=== PATIENT | female | born 1975 | race Caucasian/White ===

== ENCOUNTER 2017-12-30 03:34 | Inpatient (IN) | payer OTHER, SELFPAY | END 2018-01-05 12:00 | disposition home or self-care (01) | DRG 336 | PROVIDERS: Admitting Provider Surgery; Emergency Provider Emergency Medicine; Visit Provider Surgery | DX: K56.50 Intestinal adhesions [bands], unspecified as to partial versus complete obstruction (principal); J45.901 Unspecified asthma with (acute) exacerbation; K56.2 Volvulus; K42.9 Umbilical hernia without obstruction or gangrene; R33.9 Retention of urine, unspecified; R06.89 Other abnormalities of breathing; Z53.31 Laparoscopic surgical procedure converted to open procedure | CPT/HCPCS: 36415; 74177; 80048; 80053; 83036; 83690; 85025; 88304; 94640; 94760; 94762; 96374; 99058; 99284; J0330; J0690; J1100; J1650; J1885; J1940; J2250; J2270; J2405; J2550; J2704; J2765; J2920; J3010; J7121; J7614; Q9967 ==

== ENCOUNTER 2018-11-29 07:53 | Inpatient (IN) | payer OTHER, MEDICAID, SELFPAY ==
[2018-02-13 09:33] VITALS: BMI 32.1
[2018-11-23 07:21] VITALS: BMI 34.7
[2018-11-29] VITALS (16 sets, daily range): BP systolic 115–146; BP diastolic 65–81; PULSE 71–102; RESP 10–18; TEMP 36.1–36.9; O2SAT 16–100; BMI 34.7
[2018-11-29] MEDS: LACTATED RINGERS 1,000 ML 42 ML IV ×2 (08:39→10:27)
[2018-11-29] MEDS: CEFAZOLIN 2 GM/100 ML FROZ.PIGGY IV ×2 (09:15→17:09)
--- NOTE | 2018-11-29 09:38 | SUR.OPER ---
Supine on padded OR bed, head on pillow, arms secured on padded arm boards at <90 degrees abduction, legs uncrossed, safety belt at thigh, tape over blanket over lower legs. Gel pad under heels.
[2018-11-29] MEDS: ACETAMINOPHEN IV 1,000 MG/100 ML VIAL 400 MG IV (09:53)
--- NOTE | 2018-11-29 10:05 | PM.PROC.1 ---
Procedures Date/Time Date of procedure: 11/29/18 Time of procedure: 09:08 Nerve Block Time out performed: Yes Local anesthetic used: lidocaine 1% Location of anesthetic used: T9-10 Nerve blocks: other (thoracic epidural for Postoperative Pain Management) Patient tolerated procedure: well and no complications Complications: none Additional comments: Thoracic epidural (T9-10) for post op pain management for ventral hernia repair as discussed with surgeon. Discussed with patient risks, benefits, and alternatives to thoracic epidural for post op pain management. Pt was brought to the OR and seated on the OR table. Standard ASA monitors attached. 2mg versed. Sterile prep and drape in the standard fashion. Landmarks identified and vertebrae palpated at approximately T9-10. Lidocaine 1% skin wheal and 25g finder needle advanced to lamina via paramedian approach. Needle advanced to bone, then walked superiorly and medially. Hustead needle inserted and advanced using the same approach. Clean GANESH to saline at 5.5cm. No paresthesias. Epidural catheter advanced easily. Catheter secured at 11cm/6cm in epidural space. Negative aspiration for heme or CSF. Test dose of 3mL 1.5% lidocaine with epinephrine was negative. Tegaderm was placed and catheter secured. Pt tolerated well.
[2018-11-29] MEDS: LIDOCAINE 1% W/EPI INJ 20 ML INJ (10:07)
[2018-11-29] MEDS: BUPIVACAINE 0.5% (PF) VIAL 30 ML INJ (10:13)
[2018-11-29] MEDS: CEFAZOLIN IRR (10:29)
[2018-11-29] MEDS: SODIUM CHLORIDE IRR (10:29)
[2018-11-29] MEDS: ONDANSETRON 4 MG/2 ML INJ IV ×3 (10:58→19:30)
--- NOTE | 2018-11-29 11:21 | SUR.PHASEI ---
EPIDURAL INFUSION STARTED BY DR BENNETT. REPORT CALLED TO [employer].
--- NOTE | 2018-11-29 12:30 | PM.HP.1 ---
History of Present Illness Date Patient Seen: 11/29/18 Time Patient Seen: 08:30 Chief complaint: [id number] REPAIR VENTRAL HERNIA Narrative: Pleasant 43-year-old lady known to me from prior visits. Last year, she underwent exploratory laparotomy for bowel obstruction and required bowel resection. She developed a wound infection postoperatively and has since developed a large hernia. She presents today to have the hernia repaired. She says that she is feeling reasonably well. She denies any new problems or symptoms. Patient History Medical History Anemia (Acute) Anxiety (Acute) Arthritis (Acute) Constipation (Acute) Depression (Acute) Diverticulosis (Acute) GERD (gastroesophageal reflux disease) (Acute) Group C streptococcal infection (Acute) History of thrombophlebitis (Acute ~2018) Hyperlipidemia (Acute) Pain (Acute) Pneumonia (Acute) Sinus drainage (Acute) Sleep apnea (Acute) Asthma (Acute) Degenerative disc disease, lumbar (Acute) Yessi's thyroiditis (Acute) History of hysterectomy (Acute) Muscle twitching (Acute) Stress incontinence (Acute) Volvulus of colon (Acute) Surgical History History of tubal ligation (Acute) Hx of cholecystectomy (Acute) History of appendectomy (Inactive 12/30/17) Social History household members: children Smoking Status: Never smoker alcohol intake: current Family & Social History Social History: household members children Tobacco & Substance use: Smoking Status Never smoker alcohol intake current alcohol intake frequency holiday/special occasion Substance Use Type does not use Meds Home Medications Medication Instructions Recorded Confirmed Type bupropion HCl [Wellbutrin XL] 150 mg PO Q DAY #0 12/30/17 11/29/18 History buspirone 15 mg PO BID #0 12/30/17 11/29/18 History escitalopram oxalate 20 mg PO QPM #0 12/30/17 11/29/18 History gabapentin [Neurontin] 300 mg PO QPM #0 12/30/17 11/29/18 History levalbuterol tartrate [Xopenex HFA] 2 puff INHALATION PRN PRN #0 12/30/17 11/29/18 History prazosin 3 mg PO Q HS #0 12/30/17 11/29/18 History trazodone 50 mg PO QHS #0 12/30/17 11/29/18 History oxycodone-acetaminophen 2 tab PO Q6HR PRN #40 tab 01/19/18 11/29/18 Rx oxycodone-acetaminophen 5 mg-325 1 tab PO Q4-6H PRN #30 tab MDD 4 11/21/18 11/29/18 Rx mg tablet Allergies Allergy/AdvReac Type Severity Reaction Status Date / Time albuterol [ALBUTEROL] Allergy Severe passes Verified 11/29/18 08:27 out latex [LATEX] Allergy Unknown Hives Verified 11/29/18 08:27 silicone Allergy Itchy Verified 11/29/18 08:27 skin, difficulty breathing, runny eyes tramadol [TRAMADOL] Allergy Hives, Verified 11/29/18 08:27 itchy skin codeine [CODEINE] AdvReac Unknown Nausea, Verified 11/29/18 08:27 vomiting sun Allergy Hives, Uncoded 11/29/18 08:27 swelling, runny eyes Review of Systems Review of Systems All systems reviewed & are unremarkable except as noted in HPI and below Exam Vital Signs (past 8 hours): - 11/29/18 08:30 11/29/18 10:52 11/29/18 10:57 Temperature 97.5 F L 97.7 F Pulse Rate 71 99 H 74 Respiratory Rate 16 13 13 Blood Pressure 115/81 140/70 138/70 Pulse Oximetry 16 L 100 96 11/29/18 11:02 11/29/18 11:07 11/29/18 11:15 Temperature Pulse Rate 81 86 80 Respiratory Rate 10 L 11 L 11 L Blood Pressure 139/69 146/69 H 130/66 Pulse Oximetry 98 96 96 11/29/18 11:22 Temperature 97.9 F Pulse Rate 80 Respiratory Rate 12 Blood Pressure 126/69 Pulse Oximetry 96 Oxygen Delivery Method Room Air Narrative Exam Narrative: Pleasant 43-year-old lady in no distress HEENT: Normocephalic and atraumatic, pupils equal round reactive to light accommodation with anicteric sclera Lungs: Clear bilaterally Heart: Regular rate and rhythm Abdomen: Soft, wide lower midline incision with an obvious visible and palpable hernia defect. It has obviously healed by secondary intention. There is a firm red to the lower aspect of the incision. It is minimally tender to palpation. Borborygmi is heard within the hernia defect itself. Otherwise active bowel sounds. No abdominal tenderness. Extremities: Warm and well perfused and without edema Assessment & Plan Assessment & Plan narrative: Very pleasant 43-year-old lady with a large ventral incisional hernia. We discussed the risks and benefits of repair today and patient expressed desire to have the procedure. After discussion with Dr. Schilling, she has elected to consent to an epidural to aid with postoperative pain control.
--- NOTE | 2018-11-29 12:38 | PM.OP.1 ---
Operative Date/Time/Diagnoses Date of procedure: 11/29/18 Time of procedure: 12:38 Pre-op diagnosis: Large Incisional Hernia Post-op diagnosis: same Procedure & Clinicians Procedure: Incisional hernia repair with Atrium Mesh Same procedure as scheduled: Yes Indications: Large and painful incisional hernia Surgeon: Matilde Floyd Click Yes if Unassisted: Yes Anesthesia Type: General (Dr. Schilling) Operative Notes Prosthetic devices, grafts, tissues, transplants, or devices: 7.5 x 15 cm atrium mesh Estimated Blood Loss (mL): 25 Procedure in detail: After obtaining informed consent, the patient brought to the operating room and placed in supine position on the operating table. Following successful induction of general endotracheal anesthesia, appropriate padding of all bony prominences, and placement of appropriate monitors, the abdomen is prepped and draped in the standard surgical fashion. A time-out was held per SCOAP protocol. Following infiltration with local anesthetic to create a field block, the existing scar was excised and passed from the table. This immediately revealed the hernia sac and bowel contents below. The edges of the hernia sac carefully defined and the hernia sac amputated. Careful adhesiolysis was undertaken to release the bowel from its attachment to the anterior abdominal wall. There were remarkably few intra-abdominal adhesions. The hernia repair measured 13 x 11 cm. The left side of the abdominal wall was noted to have retracted significantly laterally and the right had stayed relatively in place. We elected to close the hernia with interrupted 1. Prolene sutures and placed internal retention sutures of #1 Vicryl. Once this was done, the wound was checked for hemostasis. The edges of the skin and subcutaneous tissue were then undermined to allow better access to the fascia. Portion of Atrium mesh, 15 x 7.5 cm, was laid onto the fascia over the incision and sewn to the fascia with Prolene and Vicryl sutures. The wound was irrigated with Ancef containing solution and then closed in layers with Vicryl suture. The skin was closed with nylon suture and clips. An Aquacel dressing was applied. All sponge, needle, and instrument counts were correct at the conclusion of the case. The patient was allowed to awake from anesthesia without difficulty and taken to the post anesthesia care unit in good condition. Complications: none Condition: stable Disposition: PACU Plan for aftercare: 1. Admit to acute care/ICU for epidural management and supportive care 2. Continue IV antibiotics for 24 hr 3. Perry to gravity drain
[2018-11-29] MEDS: DEXTROSE 5%-0.45% NS 1,000 ML 125 ML IV ×2 (12:59→21:37)
[2018-11-29] MEDS: BUPIVACAINE 0.5% (PF) 25 ML in SODIUM CHLORIDE 0.9% 75 ML 5 ML EPIDURAL (13:01)
--- NOTE | 2018-11-29 13:09 | PM.PN.1 ---
Subjective Date Patient Seen: 11/29/18 Time Patient Seen: 13:09 Interval history: Now post ventral hernia repair, thoracic epidural in situ. Pt denies pain. Exam Vital Signs (past 8 hours): - 11/29/18 08:30 11/29/18 10:52 11/29/18 10:57 Temperature 97.5 F L 97.7 F Pulse Rate 71 99 H 74 Respiratory Rate 16 13 13 Blood Pressure 115/81 140/70 138/70 Pulse Oximetry 16 L 100 96 11/29/18 11:02 11/29/18 11:07 11/29/18 11:15 Temperature Pulse Rate 81 86 80 Respiratory Rate 10 L 11 L 11 L Blood Pressure 139/69 146/69 H 130/66 Pulse Oximetry 98 96 96 11/29/18 11:22 11/29/18 11:30 11/29/18 12:00 Temperature 97.9 F 96.9 F L Pulse Rate 80 85 80 Respiratory Rate 12 12 16 Blood Pressure 126/69 126/76 138/81 Pulse Oximetry 96 96 94 11/29/18 13:00 Temperature Pulse Rate 95 H Respiratory Rate 18 Blood Pressure 126/74 Pulse Oximetry 94 Oxygen Delivery Method Room Air Oxygen Flow Rate 0 Narrative Exam Narrative: Block to cold sensation approximately T3-L3. Assessment & Plan Assessment & Plan narrative: Effective thoracic epidural. Excessive block at the moment, to be expected considering intraoperative boluses totaling 14mL 0.25% bupiv. Currently running 0.125% bupiv at 5mL/h. Will leave at current rate through the night, with the expectation that the block will recede significantly with the infusion. Anticipate 2-3 days of TEP for POPM. Quality VTE Deep Vein Thrombosis/Pulmonary Embolism Present on Admission: No
--- NOTE | 2018-11-29 13:29 | PT.IPTN ---
Current Diagnoses Ventral hernia without obstruction or gangrene (11/29/18) Surgery Performed Operation Date: 11/29/18 08:45 Actual Procedures p Hernia Repair Ventral - Matilde Floyd MD Physical Therapy: Order received and chart reviewed. Pt underwent surgery today. Spoke with her nurse who reports she is still having significant numbness. Will follow up tomorrow for possible evaluation.
[2018-11-29] MEDS: HYDROMORPHONE 1 MG INJ IV ×2 (14:15→20:39)
--- NOTE | 2018-11-29 14:43 | PC.NURSE ---
Postop Note Pt arrived to room 103 from PACU at 1130 via bed. Alert and oriented x3. Denies nausea - received zofran in PACU prior to transfer. Denies pain. Epidural infusing at 5 ml/hr, numbness reported from about T4 to about L2 on assessment - pt had received bolus through epidural prior to transfer. Abdominal binder in place over midline incision with aquacel c/d/i. Taking in clear liquids without issue. Perry catheter placed in room per MD order. Oxygen sats 95% RA. Oriented to room and to call light/bed/tv controls. Call light within reach. Family is at bedside.
[2018-11-29] MEDS: PROCHLORPERAZINE 10 MG/2 ML VIAL 5 MG IV (17:16)
[2018-11-29] MEDS: ESCITALOPRAM 10 MG TABLET 20 MG PO (17:27)
[2018-11-29] MEDS: ACETAMINOPHEN 325 MG TABLET 975 MG PO (20:32)
[2018-11-29] MEDS: BUSPIRONE 15 MG TABLET PO (20:33)
[2018-11-29] MEDS: CELECOXIB 200 MG CAPSULE PO (20:33)
[2018-11-29] MEDS: PRAZOSIN 1 MG CAPSULE 3 MG PO (20:33)
[2018-11-29] MEDS: GABAPENTIN 600 MG TABLET PO (20:34)
[2018-11-29] MEDS: diphenhydrAMINE 50 MG/ML VIAL 25 MG IV (21:37)
[2018-11-30] VITALS (8 sets, daily range): BP systolic 104–130; BP diastolic 38–72; PULSE 76–92; RESP 15–20; TEMP 36.5–37; O2SAT 90–97
[2018-11-30] MEDS: BUPIVACAINE 0.5% (PF) 25 ML in SODIUM CHLORIDE 0.9% 75 ML 7 ML EPIDURAL ×2 (00:15→14:09)
[2018-11-30] MEDS: CEFAZOLIN 2 GM/100 ML FROZ.PIGGY IV ×3 (00:15→17:09)
[2018-11-30] MEDS: PROCHLORPERAZINE 10 MG/2 ML VIAL 5 MG IV (00:15)
[2018-11-30] MEDS: ONDANSETRON 4 MG/2 ML INJ IV ×2 (01:11→11:12)
[2018-11-30 05:14] LABS: Add Manual Diff / Slide Review NO; Basophils Absolute Auto 0 /uL (0-100); Basophils Percent Auto 0.4 % (0-2); Eosinophils Absolute Auto 0 /uL (0-450); Eosinophils Percent Auto 0.1 % (2-4); Hematocrit 38.1 % (36-46); Hemoglobin 12.5 g/dL (12.0-16.0); Lymphocytes Absolute Auto 1800 /uL (1100-4500); Lymphocytes Percent Auto 15.5 % (25-40); Mean Corpuscular HGB Conc 32.9 % (30-36); Mean Corpuscular Volume 91.1 fL (80-100); Monocytes Absolute Auto 700 /uL (0-900); Monocytes Percent Auto 6.3 % (3-14); Neutrophils Absolute Auto 8900 /uL (1500-7000); Neutrophils Percent Auto 77.7 % (50-75); Platelet Count 257 X10^3/uL (150-400); Red Blood Cell Count 4.18 X10^6/uL (4.0-5.2); Red Cell Distribution Width 13.5 % (11.6-14.8); White Blood Cell Count 11.4 X10^3/uL (4.5-11.0)
[2018-11-30 05:22] LABS: Alanine Aminotransferase 24 IU/L (9-52); Albumin 3.8 g/dL (3.5-5.0); Albumin Globulin Ratio 1.2 (1.0-2.8); Alkaline Phosphatase 51 U/L (38-126); Aspartate Aminotransferase 20 IU/L (14-36); Bilirubin Total 0.3 mg/dL (0.2-1.3); Blood Urea Nitrogen 9 mg/dL (7-17); Calcium 8.3 mg/dL (8.4-10.2); Carbon Dioxide 22 mmol/L (22-32); Chloride 101 mmol/L (98-107); Estimated Glomerular Filt Rate > 60.0 mL/min (>60); Globulin 3.1 g/dL (1.7-4.1); Glucose 129 mg/dL (70-100); HEMOLYSIS < 15 (0-50); Magnesium 1.8 mg/dL (1.6-2.3); Potassium 3.9 mmol/L (3.4-5.1); Sodium 136 mmol/L (137-145); Total Protein 6.9 g/dL (6.3-8.2)
[2018-11-30] MEDS: DEXTROSE 5%-0.45% NS 1,000 ML 125 ML IV ×3 (06:09→23:30)
--- NOTE | 2018-11-30 06:16 | PC.NURSE ---
Patient has dozed, epidural with bupivicaine infusing at 7ml/hr, controlling abdominal pain, no IV Dilaudid requested for breakthrough pain. Does have intermittent nausea without emesis, IV Compazine and Zofran given per prn. Binder in place over Carlael chanelg. VSS.
[2018-11-30] MEDS: ACETAMINOPHEN 325 MG TABLET 975 MG PO ×3 (10:15→21:05)
[2018-11-30] MEDS: CELECOXIB 200 MG CAPSULE PO ×2 (10:16→21:06)
[2018-11-30] MEDS: buPROPion XL 150 MG TAB PO (10:16)
[2018-11-30] MEDS: BUSPIRONE 15 MG TABLET PO ×2 (10:16→21:06)
[2018-11-30] MEDS: GABAPENTIN 600 MG TABLET PO ×2 (10:16→21:06)
[2018-11-30] MEDS: ENOXAPARIN 40 MG/0.4 ML SYRINGE SUBCUT (10:17)
--- NOTE | 2018-11-30 11:30 | CM.DANOTE ---
DCP: Case received, EMR reviewed and met with patient. Introduced self and role. DCP template completed with information currently available. Patient is a 43 year old female who admitted yesterday to the surgical team. PCP: Dr. Miller. Payer: confirmed: Jennifer Landry. Patient came to hospital for surgical procedure. She had a repair of a ventral hernia. Met briefly with patient. She is from her spouse, and her son Mike lives with her, and her mother is here staying with her while she is recuperating. She stated, she may be here for a couple more days, according to the sugeon. Patient resides in [place], and is employed. P: DCP to continue to follow. Patient should be able to go home when she is medically stable. Izabela Mendiola RN/Brim Molder
--- NOTE | 2018-11-30 12:09 | P.PN_ITS ---
Subjective Date Patient Seen: 11/30/18 Time Patient Seen: 12:07 Interval history: Josef is in reasonable spirits today. Her only real complaint is heartburn. She says she is having a little bit of nausea from heartburn but she is otherwise tolerating oral intake. She has not passed any flatus but she feels a lot of movement in her abdomen and feels like it will happen any minute. She also says she is having a little bit of discomfort on the right side of her abdomen. She has no feeling on the left side of her abdomen. Exam Vital Signs (past 8 hours): - 11/30/18 04:20 11/30/18 08:45 Temperature 97.7 F 98.1 F Pulse Rate 88 84 Respiratory Rate 16 15 Blood Pressure 122/70 120/71 Pulse Oximetry 92 95 Oxygen Delivery Method Room Air Oxygen Flow Rate 0 Narrative Exam Narrative: Lungs: Clear bilaterally Heart: Regular rate and rhythm without murmur Abdomen: Soft, appropriately tender to palpation, abdominal binder in place. Aqua maty remains in place with minimal shadow extremities: No edema Objective Labs Result Diagrams: 11/30/18 04:50 11/30/18 04:50 Labs: Laboratory Results - last 24 hr 11/29/18 11/30/18 11/30/18 12:00 04:50 04:50 WBC 11.4 H RBC 4.18 Hgb 12.5 Hct 38.1 MCV 91.1 MCH 30.0 MCHC 32.9 RDW 13.5 Plt Count 257 Neut % (Auto) 77.7 H Lymph % (Auto) 15.5 L [place] % (Auto) 6.3 Eos % (Auto) 0.1 L Baso % (Auto) 0.4 Neut # (Auto) 8900 H Lymph # (Auto) 1800 [place] # (Auto) 700 Eos # (Auto) 0 Baso # (Auto) 0 Sodium 136 L Potassium 3.9 Chloride 101 Carbon Dioxide 22 BUN 9 Creatinine 0.60 Estimated GFR > 60.0 BUN/Creatinine Ratio 15.0 Glucose 129 H Calcium 8.3 L Magnesium 1.8 Total Bilirubin 0.3 AST 20 ALT 24 Alkaline Phosphatase 51 Total Protein 6.9 Albumin 3.8 Globulin 3.1 Albumin/Globulin Ratio 1.2 Nasal Screen MRSA (PCR) Negative for mrsa Assessment & Plan Assessment & Plan narrative: postop day 1 after repair of a large incisional hernia. 1. Start IV Protonix and Reglan 2. oral Tums as needed 3. we will ask the anesthesia provider to check the epidural. Would like to leave it in at least a day or 2 longer. 4. continue stool softeners Quality VTE Deep Vein Thrombosis/Pulmonary Embolism Present on Admission: No
[2018-11-30] MEDS: PANTOPRAZOLE 40 MG VIAL IV ×2 (12:15→21:01)
[2018-11-30] MEDS: METOCLOPRAMIDE 10 MG/2 ML INJ 5 MG IV ×2 (12:17→21:00)
[2018-11-30] MEDS: CALCIUM CARBONATE 500 MG TAB 1000 MG PO (12:18)
--- NOTE | 2018-11-30 13:04 | PT.IIE ---
Current Diagnoses Ventral hernia without obstruction or gangrene (11/29/18) Surgery Performed Operation Date: 11/29/18 08:45 Actual Procedures p Hernia Repair Ventral - Matilde Floyd MD Surgical History (Last Reviewed 11/29/18 @ 12:31 by Matilde Floyd MD) History of tubal ligation (Acute) Hx of cholecystectomy (Acute) History of appendectomy (Inactive 12/30/17) Medical History (Last Reviewed 11/29/18 @ 12:31 by Matilde Floyd MD) Anemia (Acute) Anxiety (Acute) Arthritis (Acute) Constipation (Acute) Depression (Acute) Diverticulosis (Acute) GERD (gastroesophageal reflux disease) (Acute) Group C streptococcal infection (Acute) History of thrombophlebitis (Acute ~2018) Hyperlipidemia (Acute) Pain (Acute) Pneumonia (Acute) Sinus drainage (Acute) Sleep apnea (Acute) Asthma (Acute) Degenerative disc disease, lumbar (Acute) Yessi's thyroiditis (Acute) History of hysterectomy (Acute) Muscle twitching (Acute) Stress incontinence (Acute) Volvulus of colon (Acute) Physical Therapy Inpatient Evaluation/Re-Eval M1 PT/OT-IP Prior Functional Status Start: 11/29/18 13:31 Freq: NEEDED Status: Active Protocol: Document 11/30/18 12:50 [facility] (Rec: 11/30/18 13:04 [facility] [id number]) Medical Review Prior Functional Status Medical History Reviewed Yes Diet/Fluid Consistency Regular Communication WNL Mobility and Gait Has been using NBQC for past month d/t pain. 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 She has 3 weeks off. Social History Household Members children Living Arrangements House Number of Floors (Floors) Two Floors Number of Stairs To Enter/Railing? Pt has 3 INGRID and has set up downstairs so she does not have to go upstairs in her house. Home Environment Standard Height Toilet Tub/Shower Home Equipment Quad Cane Shower Seat with Backrest Grab Bars In Shower Employment Status [employer] Employed Additional Social History Comment Mom will be here to help until the 28th M2 PT-IP Current Condition Start: 11/29/18 13:31 Freq: NEEDED Status: Active Protocol: Document 11/30/18 12:50 [facility] (Rec: 11/30/18 13:04 [facility] [id number]) Physical Therapy Current Condition Current Condition Evaluation Date 11/30/18 Treatment Diagnosis S/p hernia repair Precautions Abdominal Surgery Precautions Log Roll Lifting Restrictions Gait Belt above Incisional Area Other Precautions no gait belt at this time d/t epidural M3 PT-IP Subjective Start: 11/29/18 13:31 Freq: NEEDED Status: Active Protocol: Document 11/30/18 12:50 [facility] (Rec: 11/30/18 13:04 [facility] [id number]) Subjective Physical Therapy Visit Type Type Initial Evaluation Visit Start Time 11:31 Visit Stop Time 12:02 Total Visit Minutes 31 Number of CHOCOLATE MAKER Visits 0 Physical Therapy Visit Comments Patient Comments Pt planning to go home after d /c from hospital. Son is 14 years old and able to help. Therapy Pain Assessment Pain When Pain Assessed During Mobility Pain Present Pain Present Pain Reported M4 PT-IP Mobility and Gait Start: 11/29/18 13:31 Freq: NEEDED Status: Active Protocol: Document 11/30/18 12:50 [facility] (Rec: 11/30/18 13:04 [facility] [id number]) PT-Bed Mobility Assessment Rolling Type of Rolling Log Rolling Roll to Right Level of Assist Standby Assistance Supine to Sit Supine to Sit Moderate Assistance Bedrails Scooting Scooting to Edge of Bed Standby Assistance PT-Transfer Assessment Sit to and From Stand Sit to and from Stand Contact Guard Assistance Equipment Transfer Assistive Device Front Wheeled Walker Orthotic/Prosthetic Devices or Brace: Yes Transfers Transfer Destination Chair Transfer Technique Stand Step Pivot Transfer Ability Level of Assist Contact Guard Assistance Comments Mobility Comments Abdominal brace worn during transfer PT-Balance Assessment Sitting Balance and Reactions Static Sitting Balance Ability Good Dynamic Sitting Balance Ability Good Standing Balance and Reactions Static Standing Balance Ability Fair Dynamic Standing Balance Ability Poor M5 PT-IP Objective Assessments Start: 11/29/18 13:31 Freq: NEEDED Status: Active Protocol: Document 11/30/18 12:50 [facility] (Rec: 11/30/18 13:04 [facility] [id number]) Orientation Orientation/Cognition Level of Alertness Alert Strength Lower Extremity Strength Assessment Bilaterally Impaired M6 PT-IP Treatment Start: 11/29/18 13:31 Freq: NEEDED Status: Active Protocol: Document 11/30/18 12:50 [facility] (Rec: 11/30/18 13:04 [facility] [id number]) Physical Therapy Treatment Education Education Provided Precautions Safety M7 PT-IP Assessment and Plan Start: 11/29/18 13:31 Freq: NEEDED Status: Active Protocol: Document 11/30/18 12:50 [facility] (Rec: 11/30/18 13:04 [facility] [id number]) PT Summary Assessment and Plan Potential Rehabilitation Potential Excellent Status of Condition at Evaluation Evolving Summary Impairments Pain Strength Balance Bed Mobility Transfers Gait Activity Tolerance Assessment Summary Pt presents s/p hernia repair with epidural in place. She has LE movement and was able to transfer to chair today. She will cont to transfer as she wants today with nursing and PT will follow up with pt tomorrow to progress as pt is able. Goals Bed Mobility Goal Independent Transfer Goal Independent Gait Goal Independent Gait Distance 150ft with least restrictive device Other Goals UP/down 3 steps with SBA Days to Meet Goals 3 Frequency of Treatment Frequency Of Treatment Once a Day Treatment Plan Physical Therapy Treatment Plan Bed Mobility Training Transfer Training Gait Training Therapeutic Exercise Post Op Education Discharge Planning Neuromuscular Re-ed Recommendations To Nursing Amount of Assist Needed 1 Person Assist Discharge Recommendations PT Discharge Recommendations Home with Assistance Outpatient PT Other Discharge Recommendations OP PT to build back strength
[2018-11-30] MEDS: FENT 2MCG/BUPIV 0.125% EPI 2 MCG/100 ML PLAST..BAG 7 MCG EPIDURAL (15:55)
--- NOTE | 2018-11-30 16:13 | P.PN_ITS ---
Subjective Date Patient Seen: 11/30/18 Time Patient Seen: 16:09 Interval history: POD#1 Ventral hernia repair, thoracic epidural running with good pain control. Yesterday pm, after boluses wore off, pt reported R-sided pain and received two 1mg doses of IV dilaudid with adequate relief. Last dose was yesterday at approx 8pm. None required today. R sided abd pain is localized, 1-5/10. At the time of visit, pt reported 1/10 pain. Tolerating regular diet. Exam Vital Signs (past 8 hours): - 11/30/18 08:45 11/30/18 12:37 11/30/18 15:57 Temperature 98.1 F 97.9 F 97.7 F Pulse Rate 84 76 80 Respiratory Rate 15 16 20 Blood Pressure 120/71 130/49 L 107/64 Pulse Oximetry 95 96 97 Oxygen Delivery Method Room Air Oxygen Flow Rate 0 Narrative Exam Narrative: Pt seated in chair, alert, happy, conversant. Block to cold sensation L>R, approximately T6-L1 bilaterally, though denser on L. Catheter insertion site and bandage c/d/i, mild TTP approx 2cm superior and to the right of the insertion site, without erythema or obvious swelling. No TTP at insertion. Objective Labs Result Diagrams: 11/30/18 04:50 11/30/18 04:50 Labs: Laboratory Results - last 24 hr 11/30/18 11/30/18 04:50 04:50 WBC 11.4 H RBC 4.18 Hgb 12.5 Hct 38.1 MCV 91.1 MCH 30.0 MCHC 32.9 RDW 13.5 Plt Count 257 Neut % (Auto) 77.7 H Lymph % (Auto) 15.5 L [place] % (Auto) 6.3 Eos % (Auto) 0.1 L Baso % (Auto) 0.4 Neut # (Auto) 8900 H Lymph # (Auto) 1800 [place] # (Auto) 700 Eos # (Auto) 0 Baso # (Auto) 0 Sodium 136 L Potassium 3.9 Chloride 101 Carbon Dioxide 22 BUN 9 Creatinine 0.60 Estimated GFR > 60.0 BUN/Creatinine Ratio 15.0 Glucose 129 H Calcium 8.3 L Magnesium 1.8 Total Bilirubin 0.3 AST 20 ALT 24 Alkaline Phosphatase 51 Total Protein 6.9 Albumin 3.8 Globulin 3.1 Albumin/Globulin Ratio 1.2 Assessment & Plan Assessment & Plan narrative: POD#1 for large ventral hernia repair with good pain control with TEP. 4mL bolus of 0.25% bupiv given to test for R sided relief, and infusion changed from 0.125% bupiv to 0.125% bupive with fentanyl 2mcg/mL, same rate 7mL/h. Pt reported relief after bolus. Will discuss with surgery possibly capping catheter tomorrow am vs tuesday. Quality VTE Deep Vein Thrombosis/Pulmonary Embolism Present on Admission: No
[2018-11-30] MEDS: ESCITALOPRAM 10 MG TABLET 20 MG PO (17:09)
[2018-11-30] MEDS: PRAZOSIN 1 MG CAPSULE 3 MG PO (21:07)
[2018-12-01] MEDS: CEFAZOLIN 2 GM/100 ML FROZ.PIGGY IV ×3 (01:18→17:19)
[2018-12-01] MEDS: FENT 2MCG/BUPIV 0.125% EPI 2 MCG/100 ML PLAST..BAG 7 MCG EPIDURAL (06:03)
[2018-12-01] MEDS: METOCLOPRAMIDE 10 MG/2 ML INJ 5 MG IV ×3 (06:21→21:14)
--- NOTE | 2018-12-01 06:32 | PC.NURSE ---
Epidural bag from narcotic drawer will not scan appropriately, [facility] called, their response it was the DrBrandon or Nurse who entered the order. Anesthesia called Dr. Clay called, she came to the dept. and looked at the empty bag and the new bag which are premixes and exactly the same , and her response is talk to pharmacy about the order. It is a combination of Bupivicaine and Fentanyl to run at 7ml/hr. The problem comes in that the emar says 2mcg Fentanyl per bag when in actuality it is 2mcg Fentany per ml.
[2018-12-01] MEDS: OXYCODONE/ACETAMINOPHEN 5/325 TABLET 2 TAB PO ×2 (08:22→14:49)
[2018-12-01 08:23] VITALS: BP 115/65; PULSE 76; RESP 16; TEMP 36.7; O2SAT 95
[2018-12-01] MEDS: buPROPion XL 150 MG TAB PO (09:03)
[2018-12-01] MEDS: BUSPIRONE 15 MG TABLET PO ×2 (09:04→20:51)
[2018-12-01] MEDS: CELECOXIB 200 MG CAPSULE PO ×2 (09:05→20:52)
[2018-12-01] MEDS: PANTOPRAZOLE 40 MG VIAL IV ×2 (09:05→20:50)
[2018-12-01] MEDS: ENOXAPARIN 40 MG/0.4 ML SYRINGE SUBCUT (09:05)
[2018-12-01] MEDS: GABAPENTIN 600 MG TABLET PO ×2 (09:05→20:52)
--- NOTE | 2018-12-01 11:00 | PT.IPTN ---
Current Diagnoses Ventral hernia without obstruction or gangrene (11/29/18) Surgery Performed Operation Date: 11/29/18 08:45 Actual Procedures p Hernia Repair Ventral - Matilde Floyd MD Physical Therapy Treatment Note M2 PT-IP Current Condition Start: 11/29/18 13:31 Freq: NEEDED Status: Active Protocol: Document 11/30/18 12:50 LRH (Rec: 11/30/18 13:04 LR [email or web address]) Physical Therapy Current Condition Current Condition Evaluation Date 11/30/18 Treatment Diagnosis S/p hernia repair Precautions Abdominal Surgery Precautions Log Roll Lifting Restrictions Gait Belt above Incisional Area Other Precautions no gait belt at this time d/t epidural M3 PT-IP Subjective Start: 11/29/18 13:31 Freq: NEEDED Status: Active Protocol: Document 12/01/18 11:00 GGD (Rec: 12/01/18 11:28 GGD [id number]) Subjective Physical Therapy Visit Type Type Treatment Note Visit Start Time 10:35 Visit Stop Time 11:00 Total Visit Minutes 25 Number of SALES CLOSER Visits 1 Physical Therapy Visit Comments Patient Comments Pt states she would like to walk. Therapy Pain Assessment Pain When Pain Assessed During Mobility Pain Present Pain Present Pain Reported Location Right Lower Abdomen Intensity 5 Scale Used Numeric (1 - 10) M4 PT-IP Mobility and Gait Start: 11/29/18 13:31 Freq: NEEDED Status: Active Protocol: Document 12/01/18 11:00 GGD (Rec: 12/01/18 11:28 GGD [id number]) PT-Bed Mobility Assessment Rolling Type of Rolling Log Rolling Roll to Right Level of Assist Standby Assistance Sit to Supine Sit to Supine Contact Guard Assistance Scooting Scooting to Edge of Bed Standby Assistance PT-Transfer Assessment Sit to and From Stand Sit to and from Stand Standby Assistance Equipment Transfer Assistive Device Front Wheeled Walker Orthotic/Prosthetic Devices or Brace: Yes Transfers Transfer Destination Bed Chair Transfer Ability Level of Assist Contact Guard Assistance Comments Mobility Comments Abdominal brace worn during transfer Gait Assessment Gait Gait Assistance Required: Contact Guard Assist Distance (Feet) 140 Able to Maintain Weight Bearing Status Yes During Gait Assistive Devices Assistive Device Front Wheeled Walker Orthotic/Prosthetic Devices or Brace: Yes Gait Deviations General Gait Pattern Decreased Stride Length Decreased Feet Clearance Flexed Trunk Wide Based Gait Factors Limiting Gait Function Factors Limiting Gait Function Decreased Strength Limited Range of Motion Pain M5 PT-IP Objective Assessments Start: 11/29/18 13:31 Freq: NEEDED Status: Active Protocol: Document 11/30/18 12:50 LRH (Rec: 11/30/18 13:04 LRH [email or web address]) Orientation Orientation/Cognition Level of Alertness Alert Strength Lower Extremity Strength Assessment Bilaterally Impaired M6 PT-IP Treatment Start: 11/29/18 13:31 Freq: NEEDED Status: Active Protocol: Document 12/01/18 11:00 GGD (Rec: 12/01/18 11:28 GGD [id number]) Physical Therapy Treatment Education Education Provided Precautions Safety M7 PT-IP Assessment and Plan Start: 11/29/18 13:31 Freq: NEEDED Status: Active Protocol: Document 12/01/18 11:00 GGD (Rec: 12/01/18 11:28 GGD [id number]) PT Summary Assessment and Plan Summary Assessment Summary Pt improving with mobility. She did need FWW for safe gait and had heavy use of UE. She improved with bed mobility and need cues for full log roll. Frequency of Treatment Frequency Of Treatment Once a Day Treatment Plan Physical Therapy Treatment Plan Bed Mobility Training Transfer Training Gait Training Therapeutic Exercise Post Op Education Discharge Planning Neuromuscular Re-ed Recommendations To Nursing Amount of Assist Needed 1 Person Assist Discharge Recommendations PT Discharge Recommendations Home with Assistance
[2018-12-01] MEDS: HYDROMORPHONE 1 MG INJ IV (11:14)
--- NOTE | 2018-12-01 11:41 | PC.NURSE ---
epidural dc'd with cath intact; pt up in chair for breakfast and ambulated with PT. IV site edematous and Katie Dobkins placed EPI iv.
[2018-12-01 12:00] VITALS: TEMP 36.6
[2018-12-01] MEDS: OXYCODONE IR 5 MG TABLET PO ×2 (12:10→21:05)
[2018-12-01] MEDS: DEXTROSE 5%-0.45% NS 1,000 ML 125 ML IV ×2 (14:50→20:50)
[2018-12-01 15:48] VITALS: BP 131/75; PULSE 84; RESP 18; TEMP 36.5; O2SAT 96
--- NOTE | 2018-12-01 16:35 | PM.PNPO.1 ---
Subjective Date Patient Seen: 12/01/18 Time Patient Seen: 16:35 Interval history: Feeling okay. Tolerating p.o.. Has a Perry in place. Just got back from walking in the halls. No bowel movement yet. Exam Vital Signs (past 8 hours): - 12/01/18 12:00 12/01/18 15:48 Temperature 97.8 F 97.7 F Pulse Rate 84 Respiratory Rate 18 Blood Pressure 131/75 Pulse Oximetry 96 Oxygen Delivery Method Room Air Oxygen Flow Rate 0 Narrative Exam Narrative: Abdomen is soft and nontender. Dressing remains intact. Perry is in place. Objective Labs Result Diagrams: 11/30/18 04:50 11/30/18 04:50 Assessment & Plan Post-op Postoperative Procedures Operation Date: 11/29/18 08:45 Actual Procedures Side Surgeon p Hernia Repair Ventral Matilde Floyd MD Postoperative status narrative: Doing well. Epidural out. Postoperative plan narrative: Will remove her Perry and give her do locks pills. Probable discharge in the morning. Quality VTE Deep Vein Thrombosis/Pulmonary Embolism Present on Admission: No
[2018-12-01] MEDS: ESCITALOPRAM 10 MG TABLET 20 MG PO (17:15)
[2018-12-01] MEDS: BISACODYL 5 MG TABLET 10 MG PO (17:45)
[2018-12-01 19:56] VITALS: BP 130/77; PULSE 87; RESP 18; TEMP 36.8; O2SAT 95
[2018-12-01] MEDS: ACETAMINOPHEN 325 MG TABLET 975 MG PO (20:50)
[2018-12-01] MEDS: PRAZOSIN 1 MG CAPSULE 3 MG PO (20:56)
--- NOTE | 2018-12-01 23:03 | PC.NURSE ---
Dc'd childress cath, pt voiding, small loose stool, passing gas, taking diet w/ out difficulty. dressing is clean dry and intact. Pt has abdominal binder in place, hoping for discharge tomorrow.
[2018-12-01 23:20] VITALS: BP 115/57; PULSE 95; RESP 16; TEMP 36.4; O2SAT 92
[2018-12-02] MEDS: OXYCODONE/ACETAMINOPHEN 5/325 TABLET 2 TAB PO ×2 (01:09→08:38)
[2018-12-02] MEDS: CEFAZOLIN 2 GM/100 ML FROZ.PIGGY IV ×2 (02:17→08:44)
--- NOTE | 2018-12-02 04:17 | PC.NURSE ---
pt AO and pleasant. D5 1/2NS infusing @125/hr. Aquacel under abdominal binder is dry and intact, shadowing outlined in marker. 4/10 pain reported at 0100 and 1 5mg tab of percocet administered. Patient has 2 tabs ordered, but requested only 1 tab because she noticed moderate itching with larger doses of oxycodone. BM reported on evening shift on 12/01. Voiding 1PA to BR.
[2018-12-02 05:10] VITALS: BP 108/66; PULSE 81; RESP 18; TEMP 36.2; O2SAT 95
[2018-12-02] MEDS: DEXTROSE 5%-0.45% NS 1,000 ML 125 ML IV (05:46)
[2018-12-02] MEDS: METOCLOPRAMIDE 10 MG/2 ML INJ 5 MG IV (05:47)
[2018-12-02 08:00] VITALS: BP 132/75; PULSE 97; RESP 18; TEMP 36.6; O2SAT 96
[2018-12-02] MEDS: BUSPIRONE 15 MG TABLET PO (08:41)
[2018-12-02] MEDS: buPROPion XL 150 MG TAB PO (08:41)
[2018-12-02] MEDS: CELECOXIB 200 MG CAPSULE PO (08:41)
[2018-12-02] MEDS: GABAPENTIN 600 MG TABLET PO (08:42)
[2018-12-02] MEDS: PANTOPRAZOLE 40 MG VIAL IV (08:42)
[2018-12-02] MEDS: ENOXAPARIN 40 MG/0.4 ML SYRINGE SUBCUT (08:53)
--- NOTE | 2018-12-02 09:21 | P.DS_ITS ---
History of Present Illness Date Patient Seen: 12/02/18 Time Patient Seen: 09:18 Chief complaint: [id number] REPAIR VENTRAL HERNIA Narrative: The patient is a woman brought in for an incisional hernia repair Discharge Providers Date of admission: 11/29/18 07:53 Discharge Date: 12/02/18 Primary care physician: Shayla Miller DO Consults: 11/29/18 10:54 Consult to Physical Therapy Evaluate & Treat Comment: Physician Instructions: Evaluate and Treat 11/29/18 11:25 Consult to Discharge Planning Routine Comment: Discharge provider: Kaleb Beasley MD Summary Discharge Diagnosis: Incisional hernia chronic Anxiety chronic Depression chronic History of Yessi's thyroiditis Chronic arthritis Gastroesophageal reflux disease chronic Hospital Course: Patient underwent repair. She had epidural placed for pain control. This was highly successful. Once it was removed her Perry was removed she was advanced in her diet during her stay. She was discharged on a general diet urinating well and after having had a bowel movement. She will follow up with Dr. Floyd in the office. Status at Discharge Cognitive/behavioral status at discharge: oriented Functional status at discharge: independent ambulation Overall status at discharge: patient is progressing back to baseline Exam Vital Signs (past 8 hours): - 12/02/18 05:10 12/02/18 08:00 Temperature 97.2 F L 97.8 F Pulse Rate 81 97 H Respiratory Rate 18 18 Blood Pressure 108/66 132/75 Pulse Oximetry 95 96 Oxygen Delivery Method Room Air Oxygen Flow Rate 0 Narrative Exam Narrative: Lungs are clear no rales or rhonchi. Heart regular rate and rhythm without murmur gallop. Abdomen is soft. Midline is intact. There is no cellulitis. Dressing was removed prior to shower. Objective Labs Result Diagrams: 11/30/18 04:50 11/30/18 04:50 Discharge Plan Discharge Plan Patient Disposition: Home Discharge Med Rec/Prescriptions Prescriptions: New oxycodone-acetaminophen 5-300 mg tablet 1 tab PO Q4H PRN (Reason: pain) Qty: 20 RF: 0 omeprazole 20 mg capsule,delayed release(DR/EC) 20 mg PO DAILY Qty: 30 RF: 0 Continued escitalopram oxalate 20 MG tablet 20 mg PO QPM Qty: 0 RF: 0 trazodone 50 MG tablet 50 mg PO QHS Qty: 0 RF: 0 gabapentin [Neurontin] 300 MG capsule 300 mg PO QPM Qty: 0 RF: 0 levalbuterol tartrate [Xopenex HFA] 45 MCG/INH HFA aerosol inhaler 2 puff Inhalation PRN PRN (Reason: Wheezing) Qty: 0 RF: 0 buspirone 15 MG tablet 15 mg PO BID Qty: 0 RF: 0 prazosin 1 MG capsule 3 mg PO Q HS Qty: 0 RF: 0 bupropion HCl [Wellbutrin XL] 150 MG tablet extended release 24 hr 150 mg PO Q DAY Qty: 0 RF: 0 oxycodone-acetaminophen [Percocet] 5-325 mg tablet 1 tab PO Q4-6H MDD 4 PRN (Reason: pain) Qty: 30 RF: 0 oxycodone-acetaminophen 5-325 mg Tablet 2 tab PO Q6HR PRN (Reason: Severe Pain) Qty: 40 RF: 0 Follow up/Referrals: Shayla Miller DO [Primary Care Provider] - Matilde Floyd MD [Physician] - (Call on Tuesday for follow-up appointment in about 8-10 days. If you need to reach a doctor after hours please call our office on hold until the page in pilot plant operator helper picks up) Provider Discharge Instructions Diet: Diet as Tolerated Activity: Do not lift over 10 lb for the next 6 weeks. Do not strain or push heavy objects for the next 6 weeks. You may walk. No other real exercise. Do not swim or be in a pool. No hot tub. You may shower. Do not drive until pain free off medication. Skin/Wound/Dressing Care Report to your healthcare provider any signs of infection, such as:: chills, fever, night sweats, increased pain, unusual drainage and unusual redness Discharge Data Primary Care Provider: Shayla Miller Attending Provider: Matilde Floyd Admit Date/Time: 11/29/18 07:53 Quality VTE Deep Vein Thrombosis/Pulmonary Embolism Present on Admission: No
--- NOTE | 2018-12-02 11:30 | PT.IPTN ---
Current Diagnoses Ventral hernia without obstruction or gangrene (11/29/18) Surgery Performed Operation Date: 11/29/18 08:45 Actual Procedures p Hernia Repair Ventral - Matilde Floyd MD Physical Therapy Treatment Note M2 PT-IP Current Condition Start: 11/29/18 13:31 Freq: NEEDED Status: Active Protocol: Document 11/30/18 12:50 LRH (Rec: 11/30/18 13:04 LR [email or web address]) Physical Therapy Current Condition Current Condition Evaluation Date 11/30/18 Treatment Diagnosis S/p hernia repair Precautions Abdominal Surgery Precautions Log Roll Lifting Restrictions Gait Belt above Incisional Area Other Precautions no gait belt at this time d/t epidural M3 PT-IP Subjective Start: 11/29/18 13:31 Freq: NEEDED Status: Active Protocol: Document 12/02/18 11:30 GGD (Rec: 12/02/18 12:11 GGD [id number]) Subjective Physical Therapy Visit Type Type Treatment Note Visit Start Time 11:05 Visit Stop Time 11:30 Total Visit Minutes 25 Number of CLINICAL TECHNOLOGIST Visits 2 Physical Therapy Visit Comments Patient Comments Pt states she want's to take a shower before she goes home. Therapy Pain Assessment Pain When Pain Assessed During Mobility Pain Present Pain Present Pain Reported M4 PT-IP Mobility and Gait Start: 11/29/18 13:31 Freq: NEEDED Status: Active Protocol: Document 12/02/18 11:30 GGD (Rec: 12/02/18 12:11 GGD [id number]) PT-Transfer Assessment Sit to and From Stand Sit to and from Stand Standby Assistance Equipment Transfer Assistive Device Small Based Quad Cane Orthotic/Prosthetic Devices or Brace: Yes Transfers Transfer Destination Bedside Commode Transfer Ability Level of Assist Contact Guard Assistance Comments Mobility Comments Abdominal brace worn during transfer Gait Assessment Gait Gait Assistance Required: Contact Guard Assist Distance (Feet) 50 Able to Maintain Weight Bearing Status Yes During Gait Assistive Devices Assistive Device Small Based Quad Cane Orthotic/Prosthetic Devices or Brace: Yes Gait Deviations General Gait Pattern Decreased Stride Length Decreased Feet Clearance Flexed Trunk Wide Based Gait Factors Limiting Gait Function Factors Limiting Gait Function Decreased Strength Limited Range of Motion Pain Stair Climbing Assessment Evaluation Level of Assist On Stairs Contact Guard Assistance Devices Stair Climbing Assistive Devices Small Base Quad Cane Technique/Endurance Stair Climbing Direction Ascend and Descend Stair Climbing Technique Step to Step Number of Steps Climbed 3 Query Text: Stair Climbing Set # Repetitions (reps) 1 M5 PT-IP Objective Assessments Start: 11/29/18 13:31 Freq: NEEDED Status: Active Protocol: Document 11/30/18 12:50 LRH (Rec: 11/30/18 13:04 LRH [email or web address]) Orientation Orientation/Cognition Level of Alertness Alert Strength Lower Extremity Strength Assessment Bilaterally Impaired M6 PT-IP Treatment Start: 11/29/18 13:31 Freq: NEEDED Status: Active Protocol: Document 12/01/18 11:00 GGD (Rec: 12/01/18 11:28 GGD [id number]) Physical Therapy Treatment Education Education Provided Precautions Safety M7 PT-IP Assessment and Plan Start: 11/29/18 13:31 Freq: NEEDED Status: Active Protocol: Document 12/02/18 11:30 GGD (Rec: 12/02/18 12:11 GGD [id number]) PT Summary Assessment and Plan Summary Assessment Summary Pt improved with mobility. She was safe and stable with quad cane and stair mobility. She was slow moving due to pain, but no LOB. She is safe for home D/C. Frequency of Treatment Frequency Of Treatment Once a Day Treatment Plan Physical Therapy Treatment Plan Bed Mobility Training Transfer Training Gait Training Therapeutic Exercise Post Op Education Discharge Planning Neuromuscular Re-ed Recommendations To Nursing Amount of Assist Needed 1 Person Assist Discharge Recommendations PT Discharge Recommendations Home with Assistance
--- NOTE | 2018-12-02 12:18 | PC.NURSE ---
Pt showered, dressed and ready for discharge home with family. Family is present to drive her home. Went over d/c instructions with Pt and family - discussed d/c meds, time of last dose, reviewed precautions for lifting, pushing, pulling, and no driving while on narcotics. Dressing changed after shower. Reviewed stroke education. Pt denies further questions and was taken out via w/c by [facility] with family and all belongings.
--- NOTE | 2018-12-02 12:33 | CM.DPC ---
DCP: continued: Pt was ok'd for home today and did go home as planned. Her family was here to pick her up.
== END 2018-12-02 12:20 | disposition home or self-care (01) | DRG 355 ==
LOC: OR 07:55 → ICU 11-30 14:22 → AC 12-01 14:34
PROVIDERS: Admitting Provider Surgery; PCP Family Medicine; Visit Provider Surgery
PROC: 0WUF0JZ Supplement Abdominal Wall with Synthetic Substitute, Open Approach (ICD-10-PCS; principal; 2018-11-29 08:45)
DX: K43.2 Incisional hernia without obstruction or gangrene (principal); F41.9 Anxiety disorder, unspecified; F32.9 Major depressive disorder, single episode, unspecified; E06.3 Autoimmune thyroiditis
CPT/HCPCS: 36415; 49560; 49568; 80053; 83735; 85025; 87797; 97116; 97162; 97530; C1781; C9113; J0131; J0690; J0780; J1100; J1170; J1200; J1650; J2250; J2405; J2704; J2765; J3010

== ENCOUNTER 2019-04-30 18:35 | Emergency (ER) | payer OTHER, MEDICAID, SELFPAY ==
[2018-11-29 12:36] VITALS: BMI 34.7
[2019-04-30 18:40] VITALS: BP 141/92; PULSE 94; RESP 20; TEMP 36.8; O2SAT 98; BMI 34.0
--- NOTE | 2019-04-30 19:38 | ED.URI ---
HPI - URI/Sore Throat General Chief Complaint: Upper Respiratory Symptoms Stated Complaint: POSSIBLE SINUS INFECTION COUGH Time Seen by Provider: 04/30/19 18:40 Source: patient and family Mode of arrival: ambulatory Limitations: no limitations History of Present Illness HPI Narrative: 44-year-old female nonsmoker with history of Yessi's and a known allergy to significant sun exposure presents with significant sinus congestion, bilateral ear pain and throat pain since she was outside for an extended period time a few days ago. She initially had some difficulty with swallowing few days ago but that has since improved. She denies any fever or chills. She states she normally takes antihistamines but has not been taking them for the past few months MD Complaint: sore throat, rhinorrhea and nasal congestion Onset (ago): day(s) Duration: constant Severity: moderate Relieving factors: nothing Exacerbating factors: nothing Description of mucous: clear Able to tolerate fluids by mouth: Yes Associated symptoms: rhinorrhea, nasal congestion and sore throat Treatments prior to arrival: none Related Data Home Medications Medication Instructions Recorded Confirmed bupropion HCl [Wellbutrin XL] 150 mg PO Q DAY #0 12/30/17 01/24/19 buspirone 15 mg PO BID #0 12/30/17 01/24/19 escitalopram oxalate 20 mg PO QPM #0 12/30/17 01/24/19 gabapentin [Neurontin] 300 mg PO QPM #0 12/30/17 01/24/19 levalbuterol tartrate [Xopenex HFA] 2 puff INHALATION PRN PRN #0 12/30/17 01/24/19 prazosin 3 mg PO Q HS #0 12/30/17 01/24/19 trazodone 50 mg PO QHS #0 12/30/17 01/24/19 Previous Rx's Medication Instructions Recorded oxycodone-acetaminophen 2 tab PO Q6HR PRN #40 tab 01/19/18 oxycodone-acetaminophen 5 mg-325 1 tab PO Q4-6H PRN #30 tab MDD 4 11/21/18 mg tablet omeprazole 20 mg PO DAILY #30 cap 12/02/18 oxycodone-acetaminophen 1 tab PO Q4H PRN #20 tab 12/02/18 tizanidine 4 mg tablet 4 mg PO Q6-8H PRN #30 tab 12/05/18 ketorolac 10 mg PO Q6H PRN #14 tab 04/30/19 Allergies Allergy/AdvReac Type Severity Reaction Status Date / Time albuterol [ALBUTEROL] Allergy Severe passes Verified 04/30/19 18:48 out latex [LATEX] Allergy Unknown Hives Verified 04/30/19 18:48 silicone Allergy Itchy Verified 04/30/19 18:48 skin, difficulty breathing, runny eyes tramadol [TRAMADOL] Allergy Hives, Verified 04/30/19 18:48 itchy skin codeine [CODEINE] AdvReac Unknown Nausea, Verified 04/30/19 18:48 vomiting sun Allergy Hives, Uncoded 01/24/19 11:10 swelling, runny eyes Review of Systems Constitutional Denies chills, Denies fever(s), Denies lethargy and Denies weakness Eyes Denies change in vision, Denies eye discharge, Denies irritation and Denies loss of vision ENT Ears, Nose, Mouth, and Throat: Denies change in voice, Reports otalgia, Denies neck pain, Reports sinus pain and Reports sore throat Cardiovascular Denies chest pain, Denies irregular heart rhythm, Denies lightheadedness, Denies palpitations, Denies dyspnea, Denies dyspnea on exertion and Denies orthopnea Respiratory Denies cough, Denies dyspnea, Denies dyspnea on exertion and Denies wheezing Gastrointestinal Gastrointestinal: Denies abdominal pain, Denies change in bowel habits, Denies diarrhea, Denies nausea and Denies vomiting Genitourinary Denies hematuria, Denies flank pain, Denies urinary incontinence and Denies urinary urgency Musculoskeletal Denies neck pain Integumentary/Breasts Denies pruritus, Denies erythema, Denies rash and Denies wounds Neurologic Denies confusion, Denies loss of vision and Denies weakness Psychiatric Denies anxiety, Denies confusion, Denies depression, Denies homicidal ideation and Denies suicidal ideation Endocrine Denies palpitations Hematologic/Lymphatic Denies easy bruising Allergic/Immunologic Denies wheezing [facility] Medical History Anemia (Acute) Anxiety (Acute) Arthritis (Acute) Asthma (Acute) Constipation (Acute) Degenerative disc disease, lumbar (Acute) Depression (Acute) Diverticulosis (Acute) GERD (gastroesophageal reflux disease) (Acute) Group C streptococcal infection (Acute) Yessi's thyroiditis (Acute) History of hysterectomy (Acute) History of thrombophlebitis (Acute ~2018) Hyperlipidemia (Acute) Muscle twitching (Acute) Pain (Acute) Pneumonia (Acute) Sinus drainage (Acute) Sleep apnea (Acute) Stress incontinence (Acute) Volvulus of colon (Acute) Surgical History History of tubal ligation (Acute) Hx of cholecystectomy (Acute) History of appendectomy (Inactive 12/30/17) Social History household members: children Smoking Status: Never smoker alcohol intake: current Social History household members: children Smoking Status: Never smoker alcohol intake: current Exam Narrative Exam Narrative: GEN: AOx3 and in mild distress EYES: Pupils are equal, round, and reactive to light and accommodation. Extraoccular muscles are intact bilaterally. There is no subconjunctival hemorrhage or exudate. ENT: Clear postnasal drip, no oral exudate consistent with thrush. No tonsillar swelling or erythema. Bilateral tympanic membranes are clear with normal cone of light, landmarks, right side has a clear effusion CHEST: Lungs are clear to auscultation bilaterally and free of wheezes, rales, or rhonchi. Heart rate is regular rhythm, there are no murmurs, clicks, rubs, or gallops. There is no chest wall tenderness. ABD: Abdomen is soft and nontender. There is no guarding or rebound. Bowel sounds are normal in all 4 quadrants. There is no mass or organomegaly. EXT: Full painless ROM of all extremities with no loss of sensation or strength. SKIN: Warm, pink, and dry. No erythema or rash Initial Vital Signs Initial Vital Signs: Vital Signs Temperature 98.3 F 04/30/19 18:40 Pulse Rate 94 H 04/30/19 18:40 Respiratory Rate 20 04/30/19 18:40 Blood Pressure 141/92 H 04/30/19 18:40 Pulse Oximetry 98 04/30/19 18:40 Course Orders Ordered: ED Orders 04/30/19 19:43 Throat Culture Stat Discontinued Medications Ketorolac Tromethamine (Toradol) 60 mg IM NOW ONE Stop: 04/30/19 19:35 Last Admin: 04/30/19 19:51 Dose: 60 mg Vital Signs - 8 hr 04/30/19 18:40 04/30/19 20:26 Temperature 98.3 F 98.4 F Pulse Rate 94 H 80 Respiratory Rate 20 16 Blood Pressure 141/92 H 134/78 Pulse Oximetry 98 98 MDM - URI/Sore Throat Lab Data Point of Care Testing Rapid Strep A Negative Discharge Plan Departure Patient Disposition: Home Clinical Impression: Allergic rhinitis Qualifiers: Allergic rhinitis trigger: other Allergic rhinitis seasonality: unspecified Qualified Code(s): J30.89 - Other allergic rhinitis Discharge Date/Time: 04/30/19 20:27 Interventions: ED Discharge Assessment Last Done: 04/30/19 20:26 Instructions: Allergic Rhinitis Activity Restrictions/Additional Instructions: *You have been diagnosed with [allergic rhinitis] *What to do: *Take medications as directed: Including [id number] antihistamine such as Maame, the decongestants you have been taking and a prescription for Toradol *Follow up with your primary care provider in 2-3 days, call for an appointment. Let them know you were seen in the Emergency Department and that we ask that you be seen in follow up *Return to ER if you should have any new, worsening or concerning symptoms Prescriptions: New ketorolac 10 mg tablet 10 mg PO Q6H PRN (Reason: pain) Qty: 14 RF: 0 No Action escitalopram oxalate 20 MG tablet 20 mg PO QPM Qty: 0 RF: 0 trazodone 50 MG tablet 50 mg PO QHS Qty: 0 RF: 0 gabapentin [Neurontin] 300 MG capsule 300 mg PO QPM Qty: 0 RF: 0 levalbuterol tartrate [Xopenex HFA] 45 MCG/INH HFA aerosol inhaler 2 puff Inhalation PRN PRN (Reason: Wheezing) Qty: 0 RF: 0 buspirone 15 MG tablet 15 mg PO BID Qty: 0 RF: 0 prazosin 1 MG capsule 3 mg PO Q HS Qty: 0 RF: 0 bupropion HCl [Wellbutrin XL] 150 MG tablet extended release 24 hr 150 mg PO Q DAY Qty: 0 RF: 0 oxycodone-acetaminophen [Percocet] 5-325 mg tablet 1 tab PO Q4-6H MDD 4 PRN (Reason: pain) Qty: 30 RF: 0 tizanidine [Zanaflex] 4 mg tablet 4 mg PO Q6-8H PRN (Reason: muscle spasticity) Qty: 30 RF: 0 oxycodone-acetaminophen 5-325 mg Tablet 2 tab PO Q6HR PRN (Reason: Severe Pain) Qty: 40 RF: 0 omeprazole 20 mg capsule,delayed release(DR/EC) 20 mg PO DAILY Qty: 30 RF: 0 oxycodone-acetaminophen 5-300 mg tablet 1 tab PO Q4H PRN (Reason: pain) Qty: 20 RF: 0 Referrals: Shayla Miller DO [Primary Care Provider] -
[2019-04-30] MEDS: KETOROLAC 60 MG/2 ML VIAL IM (19:51)
[2019-04-30 20:26] VITALS: BP 134/78; PULSE 80; RESP 16; TEMP 36.9; O2SAT 98
== END 2019-04-30 20:27 | disposition home or self-care (01) ==
PROVIDERS: Emergency Provider Emergency Medicine; PCP Family Medicine
DX: J30.89 Other allergic rhinitis (principal)
CPT/HCPCS: 87070; 87880; 96372; 99283; J1885

== ENCOUNTER 2019-11-21 21:23 | Emergency (ER) | payer OTHER, MEDICAID, SELFPAY ==
[2018-11-29 12:36] VITALS: BMI 34.7
[2019-11-21 21:41] VITALS: BP 133/63; PULSE 91; RESP 16; TEMP 37.4; O2SAT 96
[2019-11-21 22:57] LABS: Influenza A - CEPHEID Flu A NEGATIVE (NEGATIVE); Influenza B - CEPHEID Flu B NEGATIVE (NEGATIVE)
[2019-11-21 23:08] VITALS: BP 138/68; PULSE 90; RESP 18; O2SAT 97
[2019-11-22 00:30] VITALS: BP 127/65; PULSE 95; RESP 18; TEMP 37.2; O2SAT 97
--- NOTE | 2019-11-22 00:30 | ED.FEVER ---
HPI - Fever General Chief Complaint: Fever Stated Complaint: flu symptoms, fever Time Seen by Provider: 11/22/19 00:29 Source: patient Mode of arrival: Ambulatory Limitations: no limitations History of Present Illness HPI Narrative: Patient has had temperature up to 99 F at home. Patient has had nasal congestion, mild cough it has been nonproductive. A little bit of headache. This all started in the last 12 hours. She has felt muscle aches all over and her upper extremities lower extremities back and torso. She has not had any shortness of breath. She has not any chest pain. She has had some nausea but no vomiting. No diarrhea constipation, no urinary symptoms. Patient is here accompanied also with her grandson who had is febrile and having upper respiratory infectious type symptoms. 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 Interiano. She has a history of volvulus and had abdominal surgery for that. Related Data Home Medications Medication Instructions Recorded Confirmed bupropion HCl [Wellbutrin XL] 150 mg PO Q DAY #0 12/30/17 01/24/19 buspirone 15 mg PO BID #0 12/30/17 01/24/19 escitalopram oxalate 20 mg PO QPM #0 12/30/17 01/24/19 gabapentin [Neurontin] 300 mg PO QPM #0 12/30/17 01/24/19 levalbuterol tartrate [Xopenex HFA] 2 puff INHALATION PRN PRN #0 12/30/17 01/24/19 prazosin 3 mg PO Q HS #0 12/30/17 01/24/19 trazodone 50 mg PO QHS #0 12/30/17 01/24/19 Previous Rx's Medication Instructions Recorded oxycodone-acetaminophen 2 tab PO Q6HR PRN #40 tab 01/19/18 oxycodone-acetaminophen 5 mg-325 1 tab PO Q4-6H PRN #30 tab MDD 4 11/21/18 mg tablet omeprazole 20 mg PO DAILY #30 cap 12/02/18 oxycodone-acetaminophen 1 tab PO Q4H PRN #20 tab 12/02/18 tizanidine 4 mg tablet 4 mg PO Q6-8H PRN #30 tab 12/05/18 ketorolac 10 mg PO Q6H PRN #14 tab 04/30/19 Allergies Allergy/AdvReac Type Severity Reaction Status Date / Time albuterol [ALBUTEROL] Allergy Severe passes Verified 04/30/19 18:48 out latex [LATEX] Allergy Unknown Hives Verified 04/30/19 18:48 silicone Allergy Itchy Verified 04/30/19 18:48 skin, difficulty breathing, runny eyes tramadol [TRAMADOL] Allergy Hives, Verified 04/30/19 18:48 itchy skin codeine [CODEINE] AdvReac Unknown Nausea, Verified 04/30/19 18:48 vomiting sun Allergy Hives, Uncoded 01/24/19 11:10 swelling, runny eyes Review of Systems Review of Systems ROS Unobtainable: All systems reviewed & are unremarkable except as noted in HPI and below Patient History Medical History Anemia (Acute) Anxiety (Acute) Arthritis (Acute) Asthma (Acute) Constipation (Acute) Degenerative disc disease, lumbar (Acute) Depression (Acute) Diverticulosis (Acute) GERD (gastroesophageal reflux disease) (Acute) Group C streptococcal infection (Acute) Yessi's thyroiditis (Acute) History of thrombophlebitis (Acute ~2018) Hyperlipidemia (Acute) Muscle twitching (Acute) Pain (Acute) Pneumonia (Acute) Sinus drainage (Acute) Sleep apnea (Acute) Stress incontinence (Acute) Volvulus of colon (Acute) Surgical History History of appendectomy (Inactive 12/30/17) History of hysterectomy (Acute) History of tubal ligation (Acute) Hx of cholecystectomy (Acute) Social History household members: children Smoking Status: Never smoker alcohol intake: current Smoking Status: Never smoker alcohol intake frequency: holidays/special occasions only Substance Use Type: does not use Exam Narrative Exam Narrative: GEN: obese, well appearing female, alert and oriented x 3, patient appears to be in mild distress. HEENT: Atraumatic, pupils are equal round reactive to light, extraocular movements are intact, nares are clear, TMs are clear with no fluid. Throat is clear without any exudates, erythema, tonsillar enlargement or uvular deviation HEART: Regular rate and rhythm without murmur, clicks, rubs. LUNGS:Lungs clear to auscultation, no wheezes, rales, crackles, chest moves symmetrically ABD:bowel sounds normal, soft, non-tender, no guarding, rebound, rigidity, no masses noted, no hepatosplenomegaly :No CVA tenderness MSCL: Non-tender, no muscle atrophy, muscles strength 5/5 upper and lower extremities, full range of motion, normal gait NEURO:CN 2-12 intact, sensation normal SKIN: Patient has old abrasion on her right knee but no other rashes or skin changes. Patient states is from a prior fall. Initial Vital Signs Initial Vital Signs: Vital Signs Temperature 99.4 F 11/21/19 21:41 Pulse Rate 91 H 11/21/19 21:41 Respiratory Rate 16 11/21/19 21:41 Blood Pressure 133/63 11/21/19 21:41 Pulse Oximetry 96 11/21/19 21:41 Course Orders Ordered: ED Orders 11/21/19 22:17 Influenza A & B (PCR) Stat Vital Signs Vital signs: Vital Signs - 8 hr 11/21/19 21:41 11/21/19 23:08 11/22/19 00:30 Temperature 99.4 F 98.9 F Pulse Rate 91 H 90 95 H Respiratory Rate 16 18 18 Blood Pressure 133/63 Blood Pressure [Left Arm] 138/68 127/65 Pulse Oximetry 96 97 97 MDM - Fever Lab Data Attestation: I reviewed the patient's lab results. Labs: Lab Results 11/21/19 Range/Units 22:17 Influenza A (RT-PCR) Flu a negative (NEGATIVE) Influenza B (RT-PCR) Flu b negative (NEGATIVE) MDM Narrative Medical decision making narrative: Labs are negative for influenza. Patient has been afebrile in department her highest temperature at home was 99 F. She does not the criteria for additional testing at this time. She is accompanied by her grandson who does have a viral type illness and is febrile here in the department. It was given. Symptomatic care and self quarantine were discussed. Discharge Plan Departure Patient Disposition: Home Clinical Impression: Upper respiratory infection Discharge Date/Time: 11/22/19 01:42 Instructions: DI for Viral Upper Respiratory Infection -- Adult Activity Restrictions/Additional Instructions: Follow-up in a week to next 10 days if your symptoms are not improving. I would recommend not attending work until your symptoms have resolved. Continue ibuprofen and/or Tylenol as needed for fevers. Continue with oral hydration. Return to ER for shortness of breath, chest pain or pressure, persistent vomiting, black or bloody stools or abdominal pain, passing out swelling in her extremities, new rashes or skin changes or other new or concerning symptoms. Prescriptions: No Action escitalopram oxalate 20 MG tablet 20 mg PO QPM Qty: 0 RF: 0 trazodone 50 MG tablet 50 mg PO QHS Qty: 0 RF: 0 gabapentin [Neurontin] 300 MG capsule 300 mg PO QPM Qty: 0 RF: 0 levalbuterol tartrate [Xopenex HFA] 45 MCG/INH HFA aerosol inhaler 2 puff Inhalation PRN PRN (Reason: Wheezing) Qty: 0 RF: 0 buspirone 15 MG tablet 15 mg PO BID Qty: 0 RF: 0 prazosin 1 MG capsule 3 mg PO Q HS Qty: 0 RF: 0 bupropion HCl [Wellbutrin XL] 150 MG tablet extended release 24 hr 150 mg PO Q DAY Qty: 0 RF: 0 oxycodone-acetaminophen [Percocet] 5-325 mg tablet 1 tab PO Q4-6H MDD 4 PRN (Reason: pain) Qty: 30 RF: 0 tizanidine [Zanaflex] 4 mg tablet 4 mg PO Q6-8H PRN (Reason: muscle spasticity) Qty: 30 RF: 0 oxycodone-acetaminophen 5-325 mg Tablet 2 tab PO Q6HR PRN (Reason: Severe Pain) Qty: 40 RF: 0 omeprazole 20 mg capsule,delayed release(DR/EC) 20 mg PO DAILY Qty: 30 RF: 0 oxycodone-acetaminophen 5-300 mg tablet 1 tab PO Q4H PRN (Reason: pain) Qty: 20 RF: 0 ketorolac 10 mg tablet 10 mg PO Q6H PRN (Reason: pain) Qty: 14 RF: 0 Referrals: Shayla Miller, [Primary Care Provider] - Stand Alone Forms: Work Release Note
== END 2019-11-22 01:42 | disposition home or self-care (01) ==
PROVIDERS: Emergency Provider Emergency Medicine; PCP Family Medicine
DX: J06.9 Acute upper respiratory infection, unspecified (principal)
CPT/HCPCS: 87502; 99282

== ENCOUNTER 2019-11-25 19:45 | Emergency (ER) | payer OTHER, MEDICAID, SELFPAY ==
[2018-11-29 12:36] VITALS: BMI 34.7
[2019-11-25 20:07] VITALS: BP 149/73; PULSE 112; RESP 12; TEMP 38.5; O2SAT 94; BMI 36.2
--- NOTE | 2019-11-25 20:08 | DI.RAD.S_ITS ---
PROCEDURE: XR CHEST 1V INDICATIONS: Short of breath and cough TECHNIQUE: One view of the chest was acquired. COMPARISON: [facility], CT, ABDOMEN/PELVIS WITH CONTRAST, 12/30/2017, 4:03. [facility], CR, XR CHEST 1V, 01/11/2018, 19:04. FINDINGS: Surgical changes and devices: Incidental note is made of a metallic body ornamentation artifact. Lungs and pleura: Lungs are clear. No pleural effusions or pneumothorax. Mediastinum: Mediastinal contours appear normal. Heart size is normal. Bones and chest wall: No suspicious bony lesions. Overlying soft tissues appear unremarkable. IMPRESSION: Normal portable chest. Dictated by: Mychal Randle M.D. on 11/25/2019 at 19:25 Approved by: Mychal Randle M.D. on 11/25/2019 at 19:26
[2019-11-25] MEDS: ONDANSETRON 4 MG/2 ML INJ IV (20:42)
[2019-11-25] MEDS: ACETAMINOPHEN 325 MG TABLET 975 MG PO (20:42)
[2019-11-25] MEDS: SODIUM CHLORIDE 0.9% 1,000 ML 1000 ML IV (20:42)
[2019-11-25 20:58] VITALS: BP 148/73; PULSE 94
[2019-11-25 21:04] LABS: Add Manual Diff / Slide Review NO; Basophils Absolute Auto 0 /uL (0-100); Basophils Percent Auto 0.3 % (0-2); Eosinophils Absolute Auto 200 /uL (0-450); Eosinophils Percent Auto 1.6 % (2-4); Hematocrit 46.1 % (36-46); Hemoglobin 15.5 g/dL (12.0-16.0); Lymphocytes Absolute Auto 900 /uL (1100-4500); Lymphocytes Percent Auto 7.4 % (25-40); Mean Corpuscular HGB Conc 33.7 % (30-36); Mean Corpuscular Hemoglobin 30.4 PG (26-34); Mean Corpuscular Volume 90.2 fL (80-100); Monocytes Absolute Auto 700 /uL (0-900); Monocytes Percent Auto 5.4 % (3-14); Neutrophils Absolute Auto 10600 /uL (1500-7000); Neutrophils Percent Auto 85.3 % (50-75); Platelet Count 360 X10^3/uL (150-400); Red Blood Cell Count 5.11 X10^6/uL (4.0-5.2); Red Cell Distribution Width 13.8 % (11.6-14.8); White Blood Cell Count 12.5 X10^3/uL (4.5-11.0)
[2019-11-25 21:09] LABS: Influenza A - CEPHEID Flu A NEGATIVE (NEGATIVE); Influenza B - CEPHEID Flu B NEGATIVE (NEGATIVE)
[2019-11-25 21:10] LABS: Alanine Aminotransferase 19 IU/L (<35); Albumin 4.9 g/dL (3.5-5.0); Albumin Globulin Ratio 1.1 (1.0-2.8); Alkaline Phosphatase 105 U/L (38-126); Aspartate Aminotransferase 22 IU/L (14-36); BUN Creatinine Ratio 14.1 (6-22); Bilirubin Total 0.6 mg/dL (0.2-1.3); Blood Urea Nitrogen 10 mg/dL (7-17); Calcium 9.6 mg/dL (8.4-10.2); Carbon Dioxide 24 mmol/L (22-32); Chloride 104 mmol/L (98-107); Estimated Glomerular Filt Rate > 60.0 mL/min (>60); Globulin 4.3 g/dL (1.7-4.1); Glucose 146 mg/dL (70-100); HEMOLYSIS < 15 (0-50); Lipase 47 U/L (23-300); Potassium 4.2 mmol/L (3.4-5.1); Sodium 137 mmol/L (137-145); Total Protein 9.2 g/dL (6.3-8.2)
--- NOTE | 2019-11-25 21:46 | ED_ITS ---
HPI - General Adult General Chief complaint: Fever Stated complaint: Fever/Cough/NVD/Lung Pain Time Seen by Provider: 11/25/19 20:06 Source: patient Mode of arrival: Wheelchair Limitations: no limitations History of Present Illness HPI narrative: 44-year-old otherwise healthy female here for evaluation of nausea and vomiting diarrhea and generally not feeling well. Patient was seen here in the emergency department a couple days ago with URI like symptoms. Had flu test performed which were negative. Sent home without any antibiotics. States that since then her upper respiratory symptoms have improved somewhat however within the past 12-24 hours she started to have nausea and vomiting and diarrhea. No blood in the stool or the vomit. No chest pain. No shortness of breath. States that she has not been able to drink much throughout the day. [place] feverish a couple days ago. Had subjective fevers today. Related Data Home Medications Medication Instructions Recorded Confirmed bupropion HCl [Wellbutrin XL] 150 mg PO Q DAY #0 12/30/17 01/24/19 buspirone 15 mg PO BID #0 12/30/17 01/24/19 escitalopram oxalate 20 mg PO QPM #0 12/30/17 01/24/19 gabapentin [Neurontin] 300 mg PO QPM #0 12/30/17 01/24/19 levalbuterol tartrate [Xopenex HFA] 2 puff INHALATION PRN PRN #0 12/30/17 01/24/19 prazosin 3 mg PO Q HS #0 12/30/17 01/24/19 trazodone 50 mg PO QHS #0 12/30/17 01/24/19 Previous Rx's Medication Instructions Recorded oxycodone-acetaminophen 2 tab PO Q6HR PRN #40 tab 01/19/18 oxycodone-acetaminophen 5 mg-325 1 tab PO Q4-6H PRN #30 tab MDD 4 11/21/18 mg tablet omeprazole 20 mg PO DAILY #30 cap 12/02/18 oxycodone-acetaminophen 1 tab PO Q4H PRN #20 tab 12/02/18 tizanidine 4 mg tablet 4 mg PO Q6-8H PRN #30 tab 12/05/18 ketorolac 10 mg PO Q6H PRN #14 tab 04/30/19 ondansetron 4 mg PO Q6H PRN #7 tab 11/25/19 Allergies Allergy/AdvReac Type Severity Reaction Status Date / Time albuterol [ALBUTEROL] Allergy Severe passes Verified 04/30/19 18:48 out latex [LATEX] Allergy Unknown Hives Verified 04/30/19 18:48 silicone Allergy Itchy Verified 04/30/19 18:48 skin, difficulty breathing, runny eyes tramadol [TRAMADOL] Allergy Hives, Verified 04/30/19 18:48 itchy skin codeine [CODEINE] AdvReac Unknown Nausea, Verified 04/30/19 18:48 vomiting sun Allergy Hives, Uncoded 01/24/19 11:10 swelling, runny eyes Review of Systems Constitutional Constitutional: Reports fatigue and Reports fever(s) Cardiovascular Cardiovascular: Denies chest pain and Denies dyspnea Respiratory Respiratory: Denies dyspnea Gastrointestinal Gastrointestinal: Reports abdominal pain, Reports diarrhea, Reports nausea and Reports vomiting Genitourinary Genitourinary: Denies dysuria and Denies vaginal discharge Musculoskeletal Musculoskeletal: Reports myalgias and Reports arthralgias Integumentary/Breasts Skin/Breast: Denies lesions and Denies rash Neurologic Neurologic: Denies behavioral changes Psychiatric Psychiatric: Denies behavioral changes Endocrine Endocrine: Reports fatigue Hematologic/Lymphatic Hematologic/Lymphatic: Denies easy bleeding and Denies easy bruising Allergic/Immunologic Allergic/Immunologic: Denies urticaria Patient History Medical History Anemia (Acute) Anxiety (Acute) Arthritis (Acute) Asthma (Acute) Constipation (Acute) Degenerative disc disease, lumbar (Acute) Depression (Acute) Diverticulosis (Acute) GERD (gastroesophageal reflux disease) (Acute) Group C streptococcal infection (Acute) Yessi's thyroiditis (Acute) History of thrombophlebitis (Acute ~2018) Hyperlipidemia (Acute) Muscle twitching (Acute) Pain (Acute) Pneumonia (Acute) Sinus drainage (Acute) Sleep apnea (Acute) Stress incontinence (Acute) Volvulus of colon (Acute) Social History household members: children Smoking Status: Never smoker alcohol intake: current Smoking Status: Never smoker alcohol intake frequency: holidays/special occasions only Substance Use Type: does not use Exam Initial Vital Signs Initial Vital Signs: Vital Signs Temperature 101.3 F H 11/25/19 20:07 Pulse Rate 112 H 11/25/19 20:07 Respiratory Rate 12 11/25/19 20:07 Blood Pressure 149/73 H 11/25/19 20:07 Pulse Oximetry 94 11/25/19 20:07 Const General: cooperative and comfortable Limitations: mental status not altered HENMT Head: normal to inspection and normocephalic Resp Effort & Inspection: normal respiratory effort Auscultation: clear to auscultation bilaterally Cardio Rate: tachycardic Rhythm: regular rhythm Pulses: radial pulses present GI Inspection: non-distended Palpation: soft, No firm and tender (Diffusely tender) Skin Lesions: no lesions Rashes: no rashes Neuro General: alert, awake and oriented x3 Cognition: normal cognition Speech: speech normal Extrem General: normal to inspection and capillary refill normal Psych Appearance: grossly normal and well kempt Scores GCS Gi coma scale eye opening: Spontaneous Gi coma scale verbal response: Orientated Gi coma scale motor response: Obey commands Gi coma scale total score: 15 Course Orders Ordered: ED Orders 11/25/19 20:08 XR chest 1V Stat 11/25/19 20:20 Influenza A & B (PCR) Stat 11/25/19 20:30 Complete Blood Count AUTO DIFF Stat Comprehensive Metabolic Panel Stat Lipase Stat Discontinued Medications Acetaminophen (Tylenol) 975 mg PO NOW ONE Stop: 11/25/19 20:18 Last Admin: 11/25/19 20:42 Dose: 975 mg Documented by: MOE Sodium Chloride (Normal Saline 0.9%) 1,000 mls @ 1,000 mls/hr IV BOLUS ONE Stop: 11/25/19 21:15 Last Infusion: 11/25/19 21:45 Dose: 0 mls/hr Documented by: Admin: 11/25/19 20:42 Dose: 1,000 mls/hr Documented by: MOE Ondansetron HCl (Zofran) 4 mg IV NOW ONE Stop: 11/25/19 20:18 Last Admin: 11/25/19 20:42 Dose: 4 mg Documented by: MOE Ondansetron HCl (Zofran Odt Prepack) 1 bottle MISC SEEINSTR ONE Stop: 11/25/19 23:08 Last Admin: 11/25/19 23:30 Dose: 1 bottle Documented by: SELENA Pantoprazole Sodium (Protonix) 40 mg IV NOW ONE Stop: 11/25/19 23:08 Last Admin: 11/25/19 23:30 Dose: 40 mg Documented by: SELENA Vital Signs Vital signs: Vital Signs - 8 hr 11/25/19 20:58 11/25/19 21:57 11/25/19 23:36 Temperature 99.8 F H Pulse Rate 94 H 95 H Respiratory Rate 16 Blood Pressure 145/75 H Blood Pressure [Left Arm] 148/73 H Pulse Oximetry 97 Medical Decision Making Medical Records Medical records reviewed: Yes I reviewed the patient's medical records. Lab Data Lab results reviewed: Yes I reviewed the patient's lab results. Result diagrams: 11/25/19 20:30 11/25/19 20:30 Labs: Lab Results 11/25/19 11/25/19 11/25/19 Range/Units 20:20 20:30 20:30 WBC 12.5 H (4.5-11.0) X10^3/uL RBC 5.11 (4.0-5.2) X10^6/uL Hgb 15.5 (12.0-16.0) g/dL Hct 46.1 H (36-46) % MCV 90.2 (80-100) fL MCH 30.4 (26-34) PG MCHC 33.7 (30-36) % RDW 13.8 (11.6-14.8) % Plt Count 360 (150-400) X10^3/uL Neut % (Auto) 85.3 H (50-75) % Lymph % (Auto) 7.4 L (25-40) % [place] % (Auto) 5.4 (3-14) % Eos % (Auto) 1.6 L (2-4) % Baso % (Auto) 0.3 (0-2) % Neut # (Auto) 44128 H (0716-2232) /uL Lymph # (Auto) 900 L (7784-4447) /uL [place] # (Auto) 700 (0-900) /uL Eos # (Auto) 200 (0-450) /uL Baso # (Auto) 0 (0-100) /uL Sodium 137 (137-145) mmol/L Potassium 4.2 (3.4-5.1) mmol/L Chloride 104 (98-107) mmol/L Carbon Dioxide 24 (22-32) mmol/L BUN 10 (7-17) mg/dL Creatinine 0.71 (0.52-1.04) mg/dL Estimated GFR > 60.0 (>60) mL/min BUN/Creatinine Ratio 14.1 (6-22) Glucose 146 H (70-100) mg/dL Calcium 9.6 (8.4-10.2) mg/dL Total Bilirubin 0.6 (0.2-1.3) mg/dL AST 22 (14-36) IU/L ALT 19 (<35) IU/L Alkaline Phosphatase 105 (38-126) U/L Total Protein 9.2 H (6.3-8.2) g/dL Albumin 4.9 (3.5-5.0) g/dL Globulin 4.3 H (1.7-4.1) g/dL Albumin/Globulin Ratio 1.1 (1.0-2.8) Lipase 47 (23-300) U/L Influenza A (RT-PCR) Flu a negative (NEGATIVE) Influenza B (RT-PCR) Flu b negative (NEGATIVE) Imaging Data Chest x-ray: Radiologist's Impression: [address] [address] XRay Report Signed Patient: Matthew Rivera LMR#: [id number] : 1975Acct:[id number] Age/Sex: 44 / FDate of Service: 11/25/19 Loc: ED Accession Number: [id number] Procedure: XR chest 1V Ordering Provider: Amadou Urbano D.O. PROCEDURE: XR CHEST 1V INDICATIONS: Short of breath and cough TECHNIQUE: One view of the chest was acquired. COMPARISON: [facility], CT, ABDOMEN/PELVIS WITH CONTRAST, 12/30/2017, 4:03. [facility], CR, XR CHEST 1V, 01/11/2018, 19:04. FINDINGS: Surgical changes and devices: Incidental note is made of a metallic body ornamentation artifact. Lungs and pleura: Lungs are clear. No pleural effusions or pneumothorax. Mediastinum: Mediastinal contours appear normal. Heart size is normal. Bones and chest wall: No suspicious bony lesions. Overlying soft tissues appear unremarkable. IMPRESSION: Normal portable chest. Dictated by: Mychal Randle M.D. on 11/25/2019 at 19:25 Approved by: Mychal Randle M.D. on 11/25/2019 at 19:26 MDM Narrative Medical decision making narrative: Patient is nontoxic appearing and stated that she did feel better after the Zofran and the fluids. She was febrile and tachycardic. Fever improved with Tylenol. Tachycardia improved with the fever and fluids. Does have an elevated white count. Has a diffusely tender abdomen however I feel that it is nonsurgical. I feel it is related to the vomiting and the diarrhea. The patient agrees with this. She has no rashes. Chest x-rays negative for pneumonia. Her flu was again negative today. She has had some upper respiratory infection symptoms recently. I feel given the current status of the COVID-19 virus that treating her given her fever and tachycardia is not unreasonable. Patient was instructed on self quarantine for the next couple days and we would call her for the results of the testing. Will send home with Zoan. Patient was able to tolerate oral intake here in the ER. Feel we could hold on any further radiologic studies for now. Patient was given return precautions and follow-up instructions. She expressed understanding and agreement. Discharge Plan Departure Patient Disposition: Home Clinical Impression: Nausea and vomiting Qualifiers: Vomiting type: unspecified Vomiting Intractability: unspecified Qualified Code(s): R11.2 - Nausea with vomiting, unspecified Upper respiratory infection Qualifiers: URI type: unspecified URI Qualified Code(s): J06.9 - Acute upper respiratory infection, unspecified Diarrhea Qualifiers: Diarrhea type: unspecified type Qualified Code(s): R19.7 - Diarrhea, unspecified Discharge Date/Time: 11/25/19 23:36 Instructions: Nausea and Vomiting-Adult Activity Restrictions/Additional Instructions: We did test you for COVID-19. The results this should be available in the next 2-5 days. We will contact you for positive and negative results. Until then I do recommend that you self quarantine which means and limiting your exposure to other individuals. I highly recommend that you wash your hands frequently. Be sure to take the nausea medication as needed. Increase your fluid intake. Tylenol and/or ibuprofen for any fevers or body aches. Contact her primary provider for follow-up. A prescription for Zofran was electronically transmitted to [facility] in [employer] Prescriptions: New ondansetron 4 mg tablet,disintegrating 4 mg PO Q6H PRN (Reason: nausea and vomiting) Qty: 7 RF: 0 No Action escitalopram oxalate 20 MG tablet 20 mg PO QPM Qty: 0 RF: 0 trazodone 50 MG tablet 50 mg PO QHS Qty: 0 RF: 0 gabapentin [Neurontin] 300 MG capsule 300 mg PO QPM Qty: 0 RF: 0 levalbuterol tartrate [Xopenex HFA] 45 MCG/INH HFA aerosol inhaler 2 puff Inhalation PRN PRN (Reason: Wheezing) Qty: 0 RF: 0 buspirone 15 MG tablet 15 mg PO BID Qty: 0 RF: 0 prazosin 1 MG capsule 3 mg PO Q HS Qty: 0 RF: 0 bupropion HCl [Wellbutrin XL] 150 MG tablet extended release 24 hr 150 mg PO Q DAY Qty: 0 RF: 0 oxycodone-acetaminophen [Percocet] 5-325 mg tablet 1 tab PO Q4-6H MDD 4 PRN (Reason: pain) Qty: 30 RF: 0 tizanidine [Zanaflex] 4 mg tablet 4 mg PO Q6-8H PRN (Reason: muscle spasticity) Qty: 30 RF: 0 oxycodone-acetaminophen 5-325 mg Tablet 2 tab PO Q6HR PRN (Reason: Severe Pain) Qty: 40 RF: 0 omeprazole 20 mg capsule,delayed release(DR/EC) 20 mg PO DAILY Qty: 30 RF: 0 oxycodone-acetaminophen 5-300 mg tablet 1 tab PO Q4H PRN (Reason: pain) Qty: 20 RF: 0 ketorolac 10 mg tablet 10 mg PO Q6H PRN (Reason: pain) Qty: 14 RF: 0 Referrals: Shayla Miller DO [Primary Care Provider] -
[2019-11-25 21:57] VITALS: TEMP 37.7
[2019-11-25] MEDS: PANTOPRAZOLE 40 MG VIAL IV (23:30)
[2019-11-25] MEDS: ONDANSETRON 4 MG ODT PREPACK 1 BOTTLE MISC (23:30)
[2019-11-25 23:36] VITALS: BP 145/75; PULSE 95; RESP 16; O2SAT 97
[2019-12-01 06:26] LABS: COVID19 Sendout Not Detected (Not Detected)
== END 2019-11-25 23:36 | disposition home or self-care (01) ==
PROVIDERS: Emergency Provider Emergency Medicine; PCP Family Medicine
DX: R11.2 Nausea with vomiting, unspecified (principal); J06.9 Acute upper respiratory infection, unspecified; R19.7 Diarrhea, unspecified; R06.02 Shortness of breath; R05 Cough; R00.0 Tachycardia, unspecified; R50.9 Fever, unspecified; D72.829 Elevated white blood cell count, unspecified
CPT/HCPCS: 36415; 71045; 80053; 83690; 85025; 87502; 87635; 96361; 96374; 96375; 99284; C9113; J2405